=== PATIENT | female | born 1995 | race Caucasian/White ===

== ENCOUNTER 2024-12-03 17:42 | Emergency (ER) | payer OTHER ==
[~2024-12-03] VITALS: Ht 170.2 cm; Wt 104.5 kg
[2024-12-03 18:01] VITALS: BP 123/76; PULSE 112; RESP 18; TEMP 98.1; O2SAT 100
[2024-12-03 18:15] LABS: COVID AG,FIA SOURCE NASAL SWAB
[2024-12-03 18:37] LABS: INFLUENZA TYPE A NEGATIVE FOR TYPE A (NEGATIVE); INFLUENZA TYPE B NEGATIVE FOR TYPE B (NEGATIVE)
[2024-12-03 18:42] LABS: SARS-COV2 (COVID) ANTIGEN,FIA Positive (Negative)
== END 2024-12-03 22:58 | disposition left against medical advice (07) ==
LOC: EMS 17:42
DX: U07.1 COVID-19 (principal); R05.9 Cough, unspecified; M79.10 Myalgia, unspecified site; Z53.21 Procedure and treatment not carried out due to patient leaving prior to being seen by health care provider
CPT/HCPCS: 87804